=== PATIENT | male | born 1950 | race Caucasian/White ===

== ENCOUNTER 2017-10-14 14:33 | Outpatient (CLI) | payer MEDICARE ==
[2017-10-14 15:02] LABS: CO2 Tension 44.3 mmHg (35.0-45.0); O2 Tension (PaO2) 64.8 mmHg (80.0-100.0); pH, Arterial 7.38 (7.35-7.45)
[2017-10-14 15:03] LABS: Actual Bicarbonate (HCO3a) 25.8 mEq/L (22-26); Base Excess (BEa) 0.3 mEq/L (0 (+/-) 2.5); Hemoglobin (Hb) 15.7 g/dL (14.0-18.0)
[2017-10-14 15:04] LABS: Hematocrit-ABG 47.8 % (42.0-52.0)
[2017-10-14 15:05] LABS: Analyzer IN Cardio OR; Calcium, Ionized 1.2 mmol/L (1.12-1.30); Puncture Site RT RAD
[2017-10-14 15:06] LABS: ALV-art Gradient 29.555 (0-20)
== END 2017-10-14 14:34 | disposition home or self-care (01) ==
LOC: CP 14:33
PROVIDERS: ATTEND Internal Medicine
DX: J44.9 Chronic obstructive pulmonary disease, unspecified (principal)
CPT/HCPCS: 82805